=== PATIENT | male | born 1970 | race Hispanic/Latino ===

== ENCOUNTER 2017-07-20 15:53 | Emergency (ER) | payer OTHER ==
[2017-07-20 16:01] VITALS: BP 119/75; PULSE 73; RESP 18; TEMP 98; O2SAT 99
--- NOTE | 2017-07-20 16:19 | ED PDOC ---
Lower Extremity Pain/Injury Time Seen by Provider: 07/20/17 16:00 Chief Complaint (Nursing): Lower Extremity Problem/Injury Chief Complaint (Provider): Left calf pain History Per: Patient History/Exam Limitations: no limitations Onset/Duration Of Symptoms: Hrs Additional Complaint(s): Patient is a 46 y/o male with no significant past medical history presenting to the emergency department for left calf pain that started this morning. States that he travels a lot and took ten trips in the last month. Also reports that he went to [facility] and took two aspirins prior to arrival with no improvement of symptoms. Denies other pain or injuries. PCP: none provided Past Medical History Reviewed: Historical Data, Nursing Documentation, Vital Signs Vital Signs: Last Vital Signs Temp 98.0 F 07/20/17 15:58 Pulse 73 07/20/17 15:58 Resp 18 07/20/17 15:58 BP 119/75 07/20/17 15:58 Pulse Ox 99 07/20/17 15:58 - Medical History PMH: No Chronic Diseases - Surgical History Surgical History: No Surg Hx - Family History Family History: States: Unknown Family Hx - Social History Current smoker - smoking cessation education provided: No Ex-Smoker (has not smoked in the last 12 months): No Alcohol: None Drugs: Denies - Home Medications Home Medications: Ambulatory Orders Medication Instructions Recorded Naproxen 1 tab PO BID PRN #14 tab 07/20/17 - Allergies Allergies/Adverse Reactions: Allergies Allergy/AdvReac Type Severity Reaction Status Date / Time No Known Allergies Allergy Verified 07/20/17 15:58 Review of Systems ROS Statement: Except As Marked, All Systems Reviewed And Found Negative Musculoskeletal: Positive for: Leg Pain (left calf pain) Physical Exam - Reviewed Nursing Documentation Reviewed: Yes Vital Signs Reviewed: Yes - Physical Exam Appears: Positive for: Well, Non-toxic, No Acute Distress Head Exam: Positive for: ATRAUMATIC, NORMAL INSPECTION, NORMOCEPHALIC Skin: Positive for: Normal Color, Warm, Dry Eye Exam: Positive for: EOMI, Normal appearance, PERRL Neck: Positive for: Normal, Painless ROM, Supple Cardiovascular/Chest: Positive for: Regular Rate, Rhythm. Negative for: Murmur Respiratory: Positive for: Normal Breath Sounds. Negative for: Accessory Muscle Use, Respiratory Distress Gastrointestinal/Abdominal: Positive for: Normal Exam, Soft. Negative for: Tenderness Extremity: Positive for: Calf Tenderness (tenderness near popliteal region of knee and proximal calf area). Negative for: Pedal Edema, Swelling (or erythema) , Other (gray's sign) - ECG O2 Sat by Pulse Oximetry: 99 - Progress ED Course And Treament: duplex lower left leg: neg for dvt Medical Decision Making Medical Decision Making: Time: 16:06 Initial impression: Left calf pain Initial plan: Duplex Lower Extremity Reevaluation Scribe Attestation: Documented by Julia Larson, acting as a scribe for RUTH ANN Tamayo. Provider Scribe Attestation: All medical record entries made by the Scribe were at my direction and personally dictated by me. I have reviewed the chart and agree that the record accurately reflects my personal performance of the history, physical exam, medical decision making, and the department course for this patient. I have also personally directed, reviewed, and agree with the discharge instructions and disposition. Disposition - Clinical Impression Clinical Impression: Leg pain - Patient ED Disposition Is Patient to be Admitted: No - Disposition Disposition: Routine/Home Disposition Time: 18:17 Condition: FAIR Prescriptions: Naproxen 1 tab PO BID PRN #14 tab PRN Reason: Pain, Moderate (4-7) Instructions: Muscle Strain (ED) Forms: [facility] (Vietnamese)
--- NOTE | 2017-07-21 16:57 | US ---
Left lower extremity ultrasound. Indication: Rule out DVT Technique: Duplex ultrasound evaluation of the left lower extremity Comparison: None available Findings: There is normal flow, compressibility, and augmentation of the left common femoral, femoral, and popliteal veins. The left posterior tibial and peroneal veins appear patent and compress normally Impression: No evidence of deep venous thrombosis in the left lower extremity above the knee. Preliminary impression was provided by virtual [facility].
== END 2017-07-20 18:54 | disposition home or self-care (01) ==
LOC: H.ER 15:53
DX: M79.662 Pain in left lower leg (principal)